=== PATIENT | female | born 1995 | race Caucasian/White ===

== ENCOUNTER 2018-12-25 07:38 | Observation (INO) ==
[2018-12-25 08:54] LABS: Basophils % 0.4 %; Eosinophils % 0.1 %; Hematocrit 41.2 % (35.3-44.9); Hemoglobin 14.3 g/dL (11.5-15.4); Immature Granulocytes % 0.2 % (0-4); Lymphocytes # 1.2 K/mcL (0.6-4.6); Lymphocytes % 14.6 %; Mean Corpuscular HGB Conc 34.7 g/dL (31.6-35.5); Mean Corpuscular Hemoglobin 30.8 pg (28.0-33.3); Mean Corpuscular Volume 88.6 fL (83.0-100.0); Monocytes # 0.6 K/mcL (0.0-1.3); Monocytes % 7.3 %; Neutrophils # 6.5 K/mcL (1.6-8.9); Platelet Count 184 K/mcL (140-400); Red Blood Count 4.65 M/mcL (3.82-4.97); Red Cell Distribution Width 12.4 % (11.5-14.5); Segmented Neutrophils % 77.4 %
[2018-12-25] MEDS ORDERED: *HR* Promethazine 25 MG/ML VIAL IVP ONE (09:03)
--- NOTE | 2018-12-25 09:10 | Emergency Department Note ---
Disposition Clinical Impression: Pyelonephritis, Acute kidney injury Nausea and vomiting Qualifiers: Vomiting type: unspecified Vomiting Intractability: intractable Qualified Code(s): R11.2 - Nausea with vomiting, unspecified Disposition: Admitted As Inpatient Condition: Good Nausea/Vomiting/Diarrhea HPI - General Chief complaint: ED Nausea/Vomiting/Diarrhea Stated complaint: vomiting Time Seen by Provider: 12/25/18 08:26 Source: patient Mode of arrival: private vehicle Limitations: no limitations Nursing Notes Reviewed: Yes Vital Signs Reviewed: Yes - History of Present Illness HPI Narrative: 23-year-old female history of nonalcoholic fatty liver disease, chronic nausea who presents with a complaint of fluid. This is the patient's third visit in 24 hours. Reports 4 days of left flank pain. She was seen previously and told she had a kidney and bladder infection. She was placed on Cipro. Reports that she was also given Pyridium which has actually helped her urine output however she was vomiting today and unable to keep down her home medications. She states she takes Zofran, Phenergan as well as a scopolamine patch as needed. States she had a fever of 102 this morning and tried to take ibuprofen but threw that up. No other complaints. Pt Subjective Complaint: nausea, vomiting, abdominal pain Onset (ago): day(s) (4) Improves with: nothing Worsens with: nonthing Associated symptoms: Reports: nausea/vomiting - Related Data Home Medications Medication Instructions Recorded Confirmed ARIPiprazole 03/05/18 HydrOXYzine Pamoate 03/05/18 Ipratropium/Albuterol Neb 03/05/18 Lamotrigine 03/05/18 Lisinopril-HCTZ 20-12.5 03/05/18 Metoclopramide 03/05/18 RisperiDONE-M 03/05/18 Simvastatin 03/05/18 Transderm-Scop 03/05/18 Vitamin E 03/05/18 Previous Rx's Medication Instructions Recorded Ciprofloxacin [Cipro] 500 mg PO BID #14 tablet 12/24/18 Ondansetron ODT [Zofran ODT] 4 mg SL Q6HR PRN #12 tab.rapdis 12/24/18 Phenazopyridine [Pyridium] 100 mg PO TID #6 tablet 12/25/18 Allergies Allergy/AdvReac Type Severity Reaction Status Date / Time cephalexin [From Keflex] Allergy Hives Verified 12/24/18 01:39 peanut Allergy Swelling Verified 12/24/18 01:39 of Lip/Tongue/Throat duloxetine [From Cymbalta] AdvReac Vomiting Verified 12/24/18 01:39 All systems ED: reviewed and negative except as stated. Constitutional: Reports: fever, chills Gastrointestinal: Reports: abdominal pain, nausea, vomiting. Denies: diarrhea Genitourinary: Reports: frequency. Denies: dysuria, hematuria Past Medical History - Past Medical History Attestation: Yes The following information was validated with the patient. Source: patient Medical history: Reports: asthma, hyperlipidemia, hypertension, liver disease Psychiatric history: Reports: anxiety, bipolar, depression, panic disorder, prior suicide attempt, schizophrenia, previous psychiatric hospitalization PHARMACIST INTERN history: Reports: polycystic ovary syndrome - Social History Smoking Status: Never smoker Smokeless Tobacco Status: No Alcohol use: Reports: none Drug use: Reports: none Physical Exam - General Limitations: no limitations General appearance: alert, in no apparent distress - Head Head exam: atraumatic, normocephalic, normal inspection - Eye Eye exam: Present: normal appearance - ENT ENT exam: normal exam - Neck Neck exam: Present: normal inspection - Chest Chest inspection: Present: normal inspection, symmetric chest wall rise - Respiratory Respiratory exam: Present: normal lung sounds bilaterally - Cardiovascular Cardiovascular exam: Present: regular rate, normal rhythm, normal heart sounds - Abdominal Exam Abdominal exam: Present: soft, tenderness (Moderate L flank and CVA tenderness). Absent: distention, guarding, rigidity - Extremities Exam Extremities exam: Present: normal inspection, full ROM - Expanded Upper Extremity Exam Shoulder exam: Present: normal inspection, full ROM Arm exam: Present: normal inspection, full ROM Elbow exam: Present: normal inspection, full ROM Forearm/Wrist exam: Present: normal inspection, full ROM Hand exam: Present: normal inspection, full ROM - Expanded Lower Extremity Exam Hip/Pelvis exam: Present: normal inspection, full ROM Upper leg exam: Present: normal inspection, full ROM Knee exam: Present: normal inspection, full ROM Lower leg exam: Present: normal inspection, full ROM Ankle exam: Present: normal inspection, full ROM Foot/toe exam: Present: normal inspection, full ROM - Skin Skin exam: Present: warm, dry Course Course Narrative: Patient seen and examined. Vital signs reviewed. She appears in no acute distress. I reviewed her previous visits demonstrating a CT scan with concern for pyelonephritis. The patient is on Cipro as an outpatient currently. She also has antiemetics at home. At this point I discussed with her that symptomatic control would be a #1 priority. We will give her some IV fluids and antiemetics. Labs and urinalysis were ordered prior to my assessment. Pending. - Reevaluation(s) Reevaluation #1: Patient vomiting after IV phenergan. Zofran ordered. Labs reviewed demonstrating an LUIS w/ SCr of 1.45. Stable transaminitis. Cipro given. Patient will likely require admission given concerns for pyelo and inability to tolerate oral intake. Vital Signs Temperature 98.8 F 12/25/18 08:52 Pulse Rate 97 12/25/18 08:52 Respiratory Rate 18 12/25/18 08:52 Blood Pressure 132/88 12/25/18 08:52 O2 Sat by Pulse Oximetry 97 12/25/18 08:52 Temperature 98.8 F 12/25/18 08:52 Pulse Rate 73 12/25/18 09:48 Respiratory Rate 18 12/25/18 09:40 Blood Pressure 144/95 12/25/18 09:48 O2 Sat by Pulse Oximetry 100 12/25/18 09:40 Oxygen Delivery Oxygen Delivery Room Air Nausea/Vomiting/Diarrhea - MDM Narrative Medical decision making narrative: 23-year-old female who presented with left flank pain previously diagnosed with pyelonephritis now with vomiting and unable to tolerate anything oral. She has tried multiple anti-emetics at home as well as IV antibiotics here without improvement. I reviewed her CT imaging demonstrates concern for pyelonephritis as well as cystitis. Her urinalysis is not grossly unremarkable for infection however there is significant blood which I am assuming is obscuring analysis. Her symptoms and exam are consistent with pyelonephritis. Her labs here are grossly unremarkable with the exception of a developing acute kidney injury with an increase in her creatinine from 0.9 to 1.45. Patient was given 2 L of IV fluids, Phenergan and Zofran as well as Cipro. She is admitted to the hospitalist service for pyelonephritis. - Medical Records Medical records reviewed: Yes I reviewed the patient's medical records. - Lab Data Lab results reviewed: Yes I reviewed the patient's lab results. Result diagrams: 12/25/18 08:29 12/25/18 08:29 Lab Results 12/25/18 12/25/18 12/25/18 Range/Units 07:57 08:29 08:29 WBC 8.4 D (4.3-11.1) K/mcL RBC 4.65 (3.82-4.97) M/mcL Hgb 14.3 (11.5-15.4) g/dL Hct 41.2 (35.3-44.9) % MCV 88.6 (83.0-100.0) fL MCH 30.8 (28.0-33.3) pg MCHC 34.7 (31.6-35.5) g/dL RDW 12.4 (11.5-14.5) % Plt Count 184 (140-400) K/mcL MPV 12.0 (9.4-12.4) fL Immature Gran % 0.2 (0-4) % Seg Neutrophils % 77.4 % Lymphocytes % 14.6 % Monocytes % 7.3 % Eosinophils % 0.1 % Basophils % 0.4 % Neutrophils # 6.5 (1.6-8.9) K/mcL Lymphocytes # 1.2 (0.6-4.6) K/mcL Monocytes # 0.6 (0.0-1.3) K/mcL Eosinophils # 0.0 (0.0-0.6) K/mcL Basophils # 0.0 (0.0-0.2) K/mcL Sodium 137 (136-145) mEq/L Potassium 3.9 (3.5-5.1) mEq/L Chloride 104 (98-107) mEq/L Carbon Dioxide 24 (23-29) mEq/L BUN 11 (6-20) mg/dL Creatinine 1.45 H (0.60-1.20) mg/dL Est GFR ( Amer) 53 L (> 60) Est GFR (Non-Af Amer) 44 L (> 60) BUN/Creatinine Ratio 8 (6-26) Glucose 128 H (70-105) mg/dL Calculated Osmolality 285 (280-300) Calcium 9.9 (8.6-10.3) mg/dL Total Bilirubin 1.1 H (0.3-1.0) mg/dL Direct Bilirubin 0.2 (0.0-0.2) mg/dL Indirect Bilirubin 0.9 (0.0-1.2) mg/dL AST 89 H (13-39) Units/L ALT 131 H (7-52) Units/L Alkaline Phosphatase 95 (34-104) Units/L Serum Total Protein 7.8 (6.4-8.9) g/dL Albumin 4.7 (3.5-5.7) g/dL Globulin 3.1 (2.4-3.5) g/dL Albumin/Globulin Ratio 1.5 (1.1-2.2) Lipase 15 (11-82) Units/L Urine Color [place] A (Yellow) Urine Clarity Cloudy A (Clear) Urine pH 5.0 (5.0-8.0) pH Units Ur Specific [place] 1.017 (1.010-1.025) Urine Protein Trace (Neg-Trace) mg/dL Urine Glucose (UA) Normal (Normal) mg/dL Urine Ketones Trace H (Negative) mg/dL Urine Blood Large H (Negative) Urine Nitrite Positive A (Negative) Urine Bilirubin Small H (Negative) Urine Urobilinogen Normal (Normal) mg/dL Ur Leukocyte Esterase Moderate H (Negative) Urine Microscopic RBC 50-100 H (0-3) per hpf Urine Microscopic WBC 15-30 H (0-3) per hpf Ur Squamous Epith Cells Many H (None-Few) per lpf Urine Bacteria None Seen (None-Few) per hpf Hyaline Casts None Seen (None-Few) per lpf Ur Culture Indicated? Cancelled Urine Test (Negative) 12/25/18 Range/Units 08:51 WBC (4.3-11.1) K/mcL RBC (3.82-4.97) M/mcL Hgb (11.5-15.4) g/dL Hct (35.3-44.9) % MCV (83.0-100.0) fL MCH (28.0-33.3) pg MCHC (31.6-35.5) g/dL RDW (11.5-14.5) % Plt Count (140-400) K/mcL MPV (9.4-12.4) fL Immature Gran % (0-4) % Seg Neutrophils % % Lymphocytes % % Monocytes % % Eosinophils % % Basophils % % Neutrophils # (1.6-8.9) K/mcL Lymphocytes # (0.6-4.6) K/mcL Monocytes # (0.0-1.3) K/mcL Eosinophils # (0.0-0.6) K/mcL Basophils # (0.0-0.2) K/mcL Sodium (136-145) mEq/L Potassium (3.5-5.1) mEq/L Chloride (98-107) mEq/L Carbon Dioxide (23-29) mEq/L BUN (6-20) mg/dL Creatinine (0.60-1.20) mg/dL Est GFR ( Amer) (> 60) Est GFR (Non-Af Amer) (> 60) BUN/Creatinine Ratio (6-26) Glucose (70-105) mg/dL Calculated Osmolality (280-300) Calcium (8.6-10.3) mg/dL Total Bilirubin (0.3-1.0) mg/dL Direct Bilirubin (0.0-0.2) mg/dL Indirect Bilirubin (0.0-1.2) mg/dL AST (13-39) Units/L ALT (7-52) Units/L Alkaline Phosphatase (34-104) Units/L Serum Total Protein (6.4-8.9) g/dL Albumin (3.5-5.7) g/dL Globulin (2.4-3.5) g/dL Albumin/Globulin Ratio (1.1-2.2) Lipase (11-82) Units/L Urine Color (Yellow) Urine Clarity (Clear) Urine pH (5.0-8.0) pH Units Ur Specific [place] (1.010-1.025) Urine Protein (Neg-Trace) mg/dL Urine Glucose (UA) (Normal) mg/dL Urine Ketones (Negative) mg/dL Urine Blood (Negative) Urine Nitrite (Negative) Urine Bilirubin (Negative) Urine Urobilinogen (Normal) mg/dL Ur Leukocyte Esterase (Negative) Urine Microscopic RBC (0-3) per hpf Urine Microscopic WBC (0-3) per hpf Ur Squamous Epith Cells (None-Few) per lpf Urine Bacteria (None-Few) per hpf Hyaline Casts (None-Few) per lpf Ur Culture Indicated? Urine Test Negative (Negative) S.B.A.R. - S.B.A.R. Situation: Demographics, MOA Background: Presenting Complaint, Relevant PMH, Meds, & Allergies Assessment: Course and respsone to treatment, Exam Concerns, Patient/Family Expectation, Pertinant Lab Results Recommendation: Barrier(s) to disposition, Recommendation based on pending studies, treatments, or consults [place] Report Given to: Dr. Camron Noguera Repor Time: 11:58 Attestation Statement - Attestation Attestation: I, Lazaro Steiner, examined this patient and my medical decision-making was reviewed with the CUSTOM HOME INSTALLER/PA/Advanced Practice Nurse/Resident Physician. I agree with the documented findings, disposition and treatment plan as described except to the extent set forth below. 23-year-old female presents emergency Department with concerns of persistent, nausea, vomiting. Patient reports she was recently diagnosed with urinary tract infection and started on Cipro. Patient unable to tolerate by mouth intake at home and is unable to keep down her anabiotic sore her nausea medications. Patient was given antiemetics in emergency department and continued to have nausea and vomiting. CT showed possible inflammation surrounding her kidneys suggesting possible pyelonephritis. Patient does have left-sided CVA tenderness on exam. Patient will be admitted to the hospitalist for further care and evaluation of persistent and intractable nausea and vomiting as well as possible pyelonephritis. Patient started on antibiotics and admitted. Patient comfortable with the plan of action.
[2018-12-25 09:15] LABS: Albumin 4.7 g/dL (3.5-5.7); Albumin/Globulin Ratio 1.5 (1.1-2.2); Bilirubin,Direct 0.2 mg/dL (0.0-0.2); Bilirubin,Indirect 0.9 mg/dL (0.0-1.2); Bilirubin,Total 1.1 mg/dL (0.3-1.0); Calcium 9.9 mg/dL (8.6-10.3); Globulin 3.1 g/dL (2.4-3.5); Potassium 3.9 mEq/L (3.5-5.1); Total Protein 7.8 g/dL (6.4-8.9)
[2018-12-25] MEDS: 0.9 % Sodium Chloride 1,000 ML IVC SCH ×4 (10:14→21:14)
[2018-12-25] MEDS ORDERED: Ondansetron 4 MG/2 ML VIAL IVP ONE (10:30)
[2018-12-25 10:31] LABS: Bilirubin,Urine Small (Negative); Blood,Urine Large (Negative); Clarity,Urine Cloudy (Clear); Color,Urine Orange (Yellow); Glucose,Urine (UA) Normal (Normal); Ketones,Urine Trace mg/dL (Negative); Leukocyte Esterase,Urine Moderate (Negative); Nitrite,Urine Positive (Negative); Protein,Urine Trace mg/dL (Neg-Trace); Specific Gravity,Urine 1.017 (1.010-1.025); Urobilinogen,Urine Normal (Normal)
[2018-12-25 10:33] LABS: Bacteria,Urine None Seen per hpf (None-Few); Hyaline Casts,Urine None Seen per lpf (None-Few); RBC,Urine 50-100 per hpf (0-3); Squamous Epithelial Cell,Urine Many per lpf (None-Few); WBC,Urine 15-30 per hpf (0-3)
[2018-12-25] MEDS ORDERED: *HR* FentaNYL (PF) 100 MCG/2 ML VIAL IVP ONE (11:12)
[2018-12-25] MEDS ORDERED: Acetaminophen 325 MG TABLET PO PRN (13:35)
[2018-12-25] MEDS ORDERED: Naloxone 0.4 MG/ML INJ IVP PRN (13:35)
--- NOTE | 2018-12-25 13:47 | Internal Med History&Physical ---
Date of Encounter: 12/25/18 Time of Encounter: 13:44 Internal Medicine - H&P: HPI Chief complaint: Right flank pain, N/V Admitted From: Emergency Dept History of present illness: Marjorie Johnson is a 23 F w hx schizophrenia, bipolar, HTN, HLD, CORBETT, PCOS, obesity, who p/w L flank pain. Pain began a few days ago and has progressed in intensity. Was seen in our ED yesterday and diagnosed with pyelonephritis, sent home with nausea meds and Cipro po. CT at the time showed uncomplicated enhancement of kidneys and bladder suggesting cystitis and pyelonephritis. However, her nausea persisted and she was unable to hold down any of her abx, na usea meds, or ibuprofen. She also spiked a fever this AM. Due to being unable to hold down fluid or pills, she came back to ED. Currently endorsing L flank pain radiating to abdomen, N/V, dysuria, and decreased urination. In the ED, pt tachycardic and uncomfortable appearing, with tenderness of exam. Labs showed Cr 1.4. She was given doses of nausea meds without relief of symptoms, and thus given IV cipro, fluids, and admitted for further management of nausea and pyelonephritis. Past medical, surgical, social, and family histories reviewed and updated as below, with update to family history to include heart disease in mother. Past Med Surg Social Fam HX - Past Medical History Medical history: asthma, hyperlipidemia, hypertension, liver disease Additional medical history: unspecified Psychiatric history: anxiety, bipolar, depression, panic disorder, prior suicide attempt, schizophrenia, previous psychiatric hospitalization - Past Surgical History Additional surgical history: Liver biopsy - Social History Smoking Status: Never smoker Smokeless Tobacco Status: No Alcohol use: none Drug use: none - Family History Mother Hx Family Cardiac Disorders: Yes (HTN) Hx Family Endocrine Disorder: Yes (thyroid, Diabetes m) Internal Medicine - H&P: Meds ARIPiprazole 03/05/18 [History] HydrOXYzine Pamoate 03/05/18 [History] Ipratropium/Albuterol Neb 03/05/18 [History] Lamotrigine 03/05/18 [History] Lisinopril-HCTZ 20-12.5 03/05/18 [History] Metoclopramide 03/05/18 [History] RisperiDONE-M 03/05/18 [History] Simvastatin 03/05/18 [History] Transderm-Scop 03/05/18 [History] Vitamin E 03/05/18 [History] Ciprofloxacin [Cipro] 500 mg PO BID #14 tablet 12/24/18 [Rx] Ondansetron ODT [Zofran ODT] 4 mg SL Q6HR PRN #12 tab.rapdis 12/24/18 [Rx] Phenazopyridine [Pyridium] 100 mg PO TID #6 tablet 12/25/18 [Rx] Allergy/AdvReac Type Severity Reaction Status Date / Time cephalexin [From Keflex] Allergy Hives Verified 12/24/18 01:39 peanut Allergy Swelling Verified 12/24/18 01:39 of Lip/Tongue/Throat duloxetine [From Cymbalta] AdvReac Vomiting Verified 12/24/18 01:39 All Systems PM: A 10-system review of systems was performed and is negative for pertinent findings except as documented above in the HPI. - Constitutional Vitals: Temp Pulse Resp BP Pulse Ox 98.8 F 73 18 144/95 100 12/25/18 08:52 12/25/18 09:48 12/25/18 09:40 12/25/18 09:48 12/25/18 09:40 Exam: General: NAD, good eye contact, uncomfortable appearing but pleasant Head: Atraumatic, normocephalic. Face symmetric Eyes: EOMI, sclerae anicteric ENT: Mucous membranes dry. Normal oral mucosa and dentition. Trachea midline. Thoracic: No visible chest wall deformities. Normal breath sounds b/l, no wheezing or crackles Cardio: Normal S1 and S2, regular rate and rhythm, no murmurs. Abdomen: Soft, nondistended. Bowel sounds present. Does not have abd tenderness but palpation does cause nausea. Does have L CVA tenderness. Extremities: Warm, well perfused. DP pulses 2+ b/l. No edema Skin: Intact. No rashes, bruises, or ulcers Neuro: Awake, fully oriented. Good memory, concentration, attention. Speech fluent. Internal Med - H&P Results - Labs CBC & Chem 7: 12/25/18 08:29 12/25/18 08:29 Labs: Short CBC 12/25/18 Range/Units 08:29 WBC 8.4 D (4.3-11.1) K/mcL Hgb 14.3 (11.5-15.4) g/dL Hct 41.2 (35.3-44.9) % Plt Count 184 (140-400) K/mcL Neutrophils # 6.5 (1.6-8.9) K/mcL BMP 12/25/18 08:29 Sodium 137 Potassium 3.9 Chloride 104 Carbon Dioxide 24 BUN 11 Creatinine 1.45 H Glucose 128 H Calcium 9.9 Liver Function 12/25/18 Range/Units 08:29 Total Bilirubin 1.1 H (0.3-1.0) mg/dL Direct Bilirubin 0.2 (0.0-0.2) mg/dL AST 89 H (13-39) Units/L ALT 131 H (7-52) Units/L Alkaline Phosphatase 95 (34-104) Units/L Albumin 4.7 (3.5-5.7) g/dL Urine 12/25/18 Range/Units 07:57 Urine Color [place] A (Yellow) Urine Clarity Cloudy A (Clear) Urine pH 5.0 (5.0-8.0) pH Units Ur Specific [place] 1.017 (1.010-1.025) Urine Protein Trace (Neg-Trace) mg/dL Urine Glucose (UA) Normal (Normal) mg/dL - Summary of Assessment and Plan Summary of Assessment and Plan: Marjorie Johnson is a 23 F w hx schizophrenia, bipolar, HTN, HLD, CORBETT, PCOS, obesity, who p/w L flank pain, dirty UA, and N/V, concerning for pyelonephritis with inability to tolerate PO therapy. Pyelonephritis and complicated cystitis: UA dirty, L CVA tenderness, CT showing pyelo w/o abscess - UCx pending - empiric cipro 400 iv bid until can PO Refractory N/V: 2/2 pyelo above, causing dehydration - zofran and phenergan - pain control with toradol, norco, tylenol - MIVF NS@150 LUIS: 2/2 dehydration 2/2 N/V above - fluids as above and monitor Obesity: BMI 36 Mental health: continue home meds once verified by pharmacy and pt can PO HTN: holding lisinopril/hctz given dehydration and LUIS HLD/CORBETT: home statin PPx: lovenox FEN: regular, MIVF as above Lines: PIV Consults: Code: Full Dispo: Obs for pyelo and N/V, anticipate 1-2 days, will be homegoing
[2018-12-25] MEDS: *HR* HYDROcodone/Acet 5/325 mg TABLET PO PRN ×2 (14:32→21:15)
[2018-12-25] MEDS: Ondansetron 4 MG/2 ML VIAL IVP PRN ×2 (14:32→21:14)
[2018-12-25] MEDS: Ketorolac 15 MG/ML VIAL IVP PRN (17:46)
[2018-12-25] MEDS: *HR* Promethazine 25 MG/ML VIAL IVP PRN (17:46)
[2018-12-26] MEDS: *HR* Promethazine 25 MG/ML VIAL IVP PRN ×2 (00:30→06:37)
[2018-12-26] MEDS: Ketorolac 15 MG/ML VIAL IVP PRN ×2 (00:30→06:37)
[2018-12-26] MEDS: 0.9 % Sodium Chloride 1,000 ML IVC SCH ×3 (04:18→21:01)
[2018-12-26] MEDS: *HR* HYDROcodone/Acet 5/325 mg TABLET PO PRN ×2 (04:19→18:27)
[2018-12-26] MEDS: Ondansetron 4 MG/2 ML VIAL IVP PRN ×3 (04:20→20:18)
[2018-12-26 07:12] LABS: Hematocrit 36.6 % (35.3-44.9); Mean Corpuscular HGB Conc 32.8 g/dL (31.6-35.5); Mean Corpuscular Hemoglobin 30.2 pg (28.0-33.3); Mean Corpuscular Volume 92.2 fL (83.0-100.0); Mean Platelet Volume 12.1 fL (9.4-12.4); Platelet Count 136 K/mcL (140-400); Red Blood Count 3.97 M/mcL (3.82-4.97); Red Cell Distribution Width 12.4 % (11.5-14.5)
[2018-12-26 07:33] LABS: Calcium 8.9 mg/dL (8.6-10.3); Magnesium 1.8 mg/dL (1.6-2.6); Potassium 3.5 mEq/L (3.5-5.1)
--- NOTE | 2018-12-26 09:51 | Internal Med Progress Note ---
Date of Encounter: 12/26/18 Time of Encounter: 09:49 - Assessment and plan (1) Pyelonephritis Current Visit: Yes Status: Acute Assessment and plan: Still with considerable discomfort, but again continued low outputs, continue IV hydration and IV antibiotics. Anti-emetics as needed. Hopefully within 24-48 hours she can be safely discharged. Discussed the importance of walking 2-3 times a day in the matute, she will not need any further DVT prophylaxis. (2) Acute kidney injury Current Visit: Yes Status: Acute Assessment and plan: Renal function is improving, we will need to stop the Toradol. Continue hydration. (3) Bipolar 1 disorder Current Visit: No Status: Chronic (4) CORBETT (nonalcoholic steatohepatitis) Current Visit: Yes Status: Acute (5) Hypertension Current Visit: Yes Status: Chronic Assessment and plan: Holding blood pressure meds, stable at this time. Qualifiers: Qualified Code(s): I10 - Essential (primary) hypertension - Subjective Interval history: Still with mild to moderate left flank pain, the nausea is improved, and urine output is still somewhat low. She has received a total of at least 3 L of fluid at this time. She has been afebrile. Appears to be in no distress. - Constitutional Vitals: Temp Pulse Resp BP Pulse Ox 98.3 F 61 15 123/85 97 12/26/18 06:35 12/26/18 06:35 12/26/18 06:35 12/26/18 06:35 12/26/18 06:35 General appearance: Present: A&O X 3, pleasant, obese, answers questions appropriately - Respiratory Respiratory exam: Present: CTAB. Absent: respiratory distress, tachypnea - Cardiovascular Cardiovascular exam: Present: RRR, +S1, +S2. Absent: JVD, tachycardia - GI/Abdominal GI/Abdominal exam: Present: normal bowel sounds, soft, no peritoneal signs. Absent: splenomegaly Internal Medicine: Result - Labs CBC & Chem 7: 12/26/18 06:26 12/26/18 06:26 Labs: Short CBC 12/26/18 Range/Units 06:26 WBC 5.5 (4.3-11.1) K/mcL Hgb 12.0 D (11.5-15.4) g/dL Hct 36.6 (35.3-44.9) % Plt Count 136 L (140-400) K/mcL BMP 12/26/18 06:26 Sodium 140 Potassium 3.5 Chloride 109 H Carbon Dioxide 23 BUN 11 Creatinine 1.34 H Glucose 96 Calcium 8.9 Urine 12/25/18 Range/Units 07:57 Urine Color [place] A (Yellow) Urine Clarity Cloudy A (Clear) Urine pH 5.0 (5.0-8.0) pH Units Ur Specific [place] 1.017 (1.010-1.025) Urine Protein Trace (Neg-Trace) mg/dL Urine Glucose (UA) Normal (Normal) mg/dL Consult Discharge Plan - Plan Referrals: Natalia Dillon MD [Primary Care Provider] -
[2018-12-27] MEDS: *HR* HYDROcodone/Acet 5/325 mg TABLET PO PRN (03:43)
[2018-12-27] MEDS: Ondansetron 4 MG/2 ML VIAL IVP PRN ×2 (03:59→12:30)
[2018-12-27] MEDS: 0.9 % Sodium Chloride 1,000 ML IVC SCH (07:32)
--- NOTE | 2018-12-27 11:00 | Discharge Summary ---
<Cole Cano - Last Filed: 12/27/18 14:37> - NOTES TO OUTPATIENT PROVIDER Notes to Outpatient Provider: Mrs. Johnson was admitted and treated for acute kidney injury and likely pyelonephritis secondary to UTI. She was treated with pain control, IV ciprofloxacin, IV fluids. She recovered well clinically and prior to discharge was producing urine and tolerating by mouth intake. She will be discharged with a continued course of oral ciprofloxacin. Date of Encounter: 12/27/18 Time of Encounter: 09:00 - Discharge Diagnosis (1) Pyelonephritis Priority: Primary Status: Acute Assessment and Plan: Patient presented with pyelonephritis and acute kidney injury secondary to UTI She was treated with 3 days of IV ciprofloxacin, when necessary antiemetics, normal saline, pain control She recovered well clinically with improvement in creatinine, urine output, by mouth intake, pain and nausea Stable for discharge with 4 days continued course oral ciprofloxacin for 7 day total course (2) Acute kidney injury Priority: Primary Status: Acute Assessment and Plan: As above (3) Bipolar 1 disorder Priority: Secondary Status: Chronic (4) CORBETT (nonalcoholic steatohepatitis) Priority: Secondary Status: Acute (5) Hypertension Priority: Secondary Status: Chronic Assessment and Plan: Blood pressure meds held while inpatient, blood pressure stable during hospital course, we will resume home meds at discharge Qualifiers: Hypertension type: essential hypertension Qualified Code(s): I10 - Essential (primary) hypertension Hospital course: Ms. Johnson is a 23 year old female with a past medical history of schizophrenia, bipolar disorder, hypertension, hyperlipidemia, nonalcoholic steatic hepatitis, PCOS. She presented to the emergency department for flank pain, nausea, vomiting. She was admitted and treated for pyelonephritis and acute kidney injury secondary to UTI. She was treated with 3 days of intravenous normal saline maintenance fluids, intravenous ciprofloxacin, as needed pain and nausea control. Over the duration of the hospital course her clinical condition improved, prior to discharge she was able to produce appropriate urine output and was tolerating by mouth intake. She will be discharged in stable condition with for continued days by mouth ciprofloxacin for a total of 7 days and Tylenol as needed for pain control. Discharge discussed with: patient - Time Spent with Patient Total time spent providing and/or coordinating discharge services: - Discharge Medications Prescriptions: New RX: Acetaminophen [Tylenol] 650 mg PO Q6HR PRN 4 Days #32 tablet PRN Reason: Mild Pain/Fever Ciprofloxacin [Cipro] 500 mg PO BID 4 Days #8 tablet Continue RX: Pantoprazole Sodium [Protonix] 40 mg PO BID RX: Lisinopril [Zestril] mg PO DAILY RX: lamoTRIgine [Lamictal] mg PO DAILY RX: Cetirizine HCl [Zyrtec] mg PO DAILY RX: Aripiprazole [Abilify] mg PO DAILY Home Medications: RX: Aripiprazole [Abilify] mg PO DAILY 12/26/18 [History] RX: Cetirizine HCl [Zyrtec] mg PO DAILY 12/26/18 [History] RX: Lisinopril [Zestril] mg PO DAILY 12/26/18 [History] RX: Pantoprazole Sodium [Protonix] 40 mg PO BID 12/26/18 [History] RX: lamoTRIgine [Lamictal] mg PO DAILY 12/26/18 [History] Ciprofloxacin [Cipro] 500 mg PO BID 4 Days #8 tablet 12/27/18 [Rx] RX: Acetaminophen [Tylenol] 650 mg PO Q6HR PRN 4 Days #32 tablet 12/27/18 [Rx] Allergies/Adverse Reactions: Allergy/AdvReac Type Severity Reaction Status Date / Time cephalexin [From Keflex] Allergy Hives Verified 12/26/18 16:04 peanut Allergy Swelling Verified 12/26/18 16:04 of Lip/Tongue/Throat duloxetine [From Cymbalta] AdvReac Vomiting Verified 12/26/18 16:04 Date of admission: 12/25/18 12:15 Primary care physician: Natalia Dillon MD Discharging clinician: Cole Cano Anticipated date of discharge: 12/27/18 - Constitutional Vitals: Temp Pulse Resp BP Pulse Ox 98.0 F 80 15 126/76 98 12/27/18 10:33 12/27/18 10:33 12/27/18 10:33 12/27/18 10:33 12/27/18 10:33 General appearance: Present: A&O X 3, pleasant, obese, answers questions appropriately Exam: General: NAD, good eye contact Head: Atraumatic, normocephalic. Face symmetric Eyes: EOMI, sclerae anicteric ENT: Mucous membranes moist. Normal oral mucosa and dentition. Trachea midline. Thoracic: No visible chest wall deformities. Normal breath sounds b/l, no wheezing or crackles Cardio: Normal S1 and S2, regular rate and rhythm, no murmurs. Abdomen: Soft, nondistended. Bowel sounds present. Mild diffuse abdominal and left CVA tenderness Extremities: Warm, well perfused. DP pulses 2+ b/l. No edema Skin: Intact. No rashes, bruises, or ulcers Neuro: Awake, fully oriented. Good memory, concentration, attention. Speech fluent. - Patient Status Disposition: Home, Self-Care Condition: Good Functional capacity at discharge: independent ambulation Overall status at discharge: patient is back to baseline - Discharge Instructions Instructions: Acute Pyelonephritis (DC) Follow Up With: Natalia Dillon MD [Primary Care Provider] - 12/31/18 3:00 pm (Family had appointment made before discharge. Thank you) - Diet and Activity Activity: resume usual activities as tolerated Diet: low fat, low cholesterol <Benjamin Pena - Last Filed: 12/27/18 19:12> Date of Encounter: 12/27/18 - Discharge Diagnosis (1) Bipolar 1 disorder Status: Chronic (2) Pyelonephritis Status: Acute (3) Acute kidney injury Status: Acute (4) CORBETT (nonalcoholic steatohepatitis) Status: Acute (5) Hypertension Status: Chronic Qualifiers: Hypertension type: essential hypertension Qualified Code(s): I10 - Essential (primary) hypertension Hospital course: Ms. Johnson is a 23 year old female - Time Spent with Patient Total time spent providing and/or coordinating discharge services: Date of admission: 12/25/18 12:15 Primary care physician: Natalia Dillon MD - Constitutional Vitals: Temp Pulse Resp BP Pulse Ox 98.1 F 70 16 155/79 99 12/27/18 14:06 12/27/18 14:06 12/27/18 14:06 12/27/18 14:06 12/27/18 14:06 - Attending Attestation I examined this patient and my medical decision-making was reviewed with the Resident Physician. I agree with the documented findings, disposition and treatment plan as described except to the extent set forth below.
[2018-12-27 14:09] VITALS: BP 155/79
== END 2018-12-27 15:05 | disposition home or self-care (01) ==
LOC: EMEROOARM 07:38 → 3ANU 07:38
PROVIDERS: ADMIT Internal Medicine; ATTEND Internal Medicine

== ENCOUNTER 2021-02-22 03:06 | Observation (INO) ==
[2021-02-22] MEDS ORDERED: 0.9 % Sodium Chloride 1,000 ML IVC ONE ×3 (03:47→09:28)
[2021-02-22 04:33] LABS: Basophils % 0.2 %; Hematocrit 37.6 % (35.3-44.9); Hemoglobin 12.5 g/dL (11.5-15.4); Immature Granulocytes % 0.4 % (0-4); Mean Corpuscular HGB Conc 33.2 g/dL (31.6-35.5); Mean Corpuscular Hemoglobin 30.1 pg (28.0-33.3); Mean Corpuscular Volume 90.6 fL (83.0-100.0); Mean Platelet Volume 11.8 fL (9.4-12.4); Monocytes # 0.3 K/mcL (0.0-1.3); Monocytes % 6.2 %; Neutrophils # 4.2 K/mcL (1.6-8.9); Platelet Count 162 K/mcL (140-400); Red Blood Count 4.15 M/mcL (3.82-4.97); Red Cell Distribution Width 12.2 % (11.5-14.5); Segmented Neutrophils % 75.2 %; White Blood Count 5.5 K/mcL (4.3-11.1)
[2021-02-22 04:42] LABS: Bilirubin,Urine Negative (Negative); Blood,Urine Large (Negative); Clarity,Urine Turbid (Clear); Color,Urine Light-Orange (Yellow); Glucose,Urine (UA) Normal (Normal); Ketones,Urine Negative (Negative); Leukocyte Esterase,Urine Small (Negative); Mucus,Urine Few per lpf (None-Few); Nitrite,Urine Negative (Negative); Protein,Urine 50 mg/dL (Neg-Trace); RBC,Urine TNTC per hpf (0-3); Specific Gravity,Urine 1.022 (1.010-1.025); Squamous Epithelial Cell,Urine Few per hpf (None-Few); WBC,Urine 15-30 per hpf (0-3)
[2021-02-22 04:53] LABS: Alanine Aminotransferase 74 Units/L (7-52); Albumin 4.4 g/dL (3.5-5.7); Albumin/Globulin Ratio 1.4 (1.1-2.2); Alkaline Phosphatase 72 Units/L (34-104); Aspartate Amino Transferase 53 Units/L (13-39); BUN/Creatinine Ratio 9 (6-26); Bilirubin,Direct 0.2 mg/dL (0.0-0.2); Bilirubin,Indirect 0.4 mg/dL (0.0-1.0); Bilirubin,Total 0.6 mg/dL (0.3-1.0); Blood Urea Nitrogen 8 mg/dL (6-20); Carbon Dioxide 25 mEq/L (23-29); Chloride 102 mEq/L (98-107); Globulin 3.2 g/dL (2.4-3.5); Glucose 93 mg/dL (70-105); Lipase 20 Units/L (11-82); Osmolality,Calculated 282 (280-300); Potassium 3.3 mEq/L (3.5-5.1); Sodium 137 mEq/L (136-145); Total Protein 7.6 g/dL (6.4-8.9); Troponin I < 0.03 ng/mL (< 0.04); eGFR For African Americans > 60 (> 60); eGFR For Non-African Americans > 60 (> 60)
[2021-02-22] MEDS ORDERED: Isovue-370 500 ML BOTTLE IVP ONE (06:09)
[2021-02-22] MEDS ORDERED: Ondansetron 4 MG/2 ML VIAL IVP ONE (07:59)
[2021-02-22] MEDS ORDERED: *HR* Promethazine 25 MG/ML VIAL IM ONE (09:28)
[2021-02-22] MEDS ORDERED: levoFLOXacin 750 MG/150 ML 750 MG/150 ML BAG IVPB ONE (10:13)
[2021-02-22] MEDS ORDERED: Naloxone 0.4 MG/ML INJ IVP PRN (12:31)
[2021-02-22] MEDS ORDERED: *HR* Dextrose 50 % in Water (Vial) 50 ML VIAL IVP PRN (12:33)
[2021-02-22] MEDS ORDERED: D5% in Water 1,000 ML IVC PRN (12:33)
[2021-02-22] MEDS ORDERED: Dextrose Gel 15 GM/37.5 ML TUBE PO PRN ×2 (12:33)
[2021-02-22] MEDS ORDERED: *HR* Promethazine 25 MG/ML VIAL IM PRN (12:39)
[2021-02-22] MEDS ORDERED: Ringers Solution, Lactated 1,000 ML IVC SCH (12:45)
[2021-02-22] MEDS ORDERED: Benzonatate 100 MG CAPSULE PO PRN (14:06)
[2021-02-22] MEDS ORDERED: Gabapentin 300 MG CAPSULE PO PRN (15:41)
[2021-02-22] MEDS: Insulin LISPRO 300 UNITS/3 ML VIAL SUBQ SCH (16:26)
[2021-02-22] MEDS ORDERED: Loratadine 10 MG TABLET PO PRN (17:10)
[2021-02-22] MEDS: Budesonide/Formoterol 160/4.5 1 PUFF INH IH SCH (20:24)
[2021-02-22] MEDS: Acetaminophen 325 MG TABLET PO PRN (21:04)
[2021-02-22] MEDS: Famotidine 20 MG TABLET PO SCH (21:04)
[2021-02-23] MEDS: *HR* Enoxaparin 40 MG/0.4 ML SYRINGE SQ SCH (05:38)
[2021-02-23] MEDS: Acetaminophen 325 MG TABLET PO PRN ×3 (05:53→21:26)
[2021-02-23 07:09] LABS: Hematocrit 33.2 % (35.3-44.9); Immature Granulocytes % 0.4 % (0-4); Lymphocytes # 1.1 K/mcL (0.6-4.6); Mean Corpuscular HGB Conc 32.8 g/dL (31.6-35.5); Mean Corpuscular Hemoglobin 29.8 pg (28.0-33.3); Mean Corpuscular Volume 90.7 fL (83.0-100.0); Mean Platelet Volume 11.7 fL (9.4-12.4); Monocytes # 0.2 K/mcL (0.0-1.3); Monocytes % 4.9 %; Neutrophils # 3.6 K/mcL (1.6-8.9); Platelet Count 139 K/mcL (140-400); Red Blood Count 3.66 M/mcL (3.82-4.97); Red Cell Distribution Width 12.3 % (11.5-14.5); Segmented Neutrophils % 72.7 %; White Blood Count 4.9 K/mcL (4.3-11.1)
[2021-02-23 07:10] LABS: Hemoglobin 10.9 g/dL (11.5-15.4)
[2021-02-23 07:13] LABS: BUN/Creatinine Ratio 8 (6-26); Blood Urea Nitrogen 6 mg/dL (6-20); Calcium 8.3 mg/dL (8.6-10.3); Carbon Dioxide 22 mEq/L (23-29); Chloride 104 mEq/L (98-107); Glucose 91 mg/dL (70-105); Osmolality,Calculated 279 (280-300); Potassium 3.2 mEq/L (3.5-5.1); Sodium 136 mEq/L (136-145); eGFR For African Americans > 60 (> 60); eGFR For Non-African Americans > 60 (> 60)
[2021-02-23] MEDS: Ipratropium 1 PUFF INHALER IH SCH ×3 (07:57→23:01)
[2021-02-23] MEDS: Budesonide/Formoterol 160/4.5 1 PUFF INH IH SCH ×2 (07:57→23:01)
[2021-02-23] MEDS: lamoTRIgine 100 MG TABLET PO SCH (08:56)
[2021-02-23] MEDS: ARIPiprazole 10 MG TABLET PO SCH (08:57)
[2021-02-23] MEDS: Insulin LISPRO 300 UNITS/3 ML VIAL SUBQ SCH ×3 (08:57→17:02)
[2021-02-23] MEDS ORDERED: lisinopriL 10 MG TABLET PO SCH (09:00)
[2021-02-23] MEDS ORDERED: Tiotropium 10 INH DOSE IH SCH (10:00)
[2021-02-23] MEDS: Ondansetron 4 MG/2 ML VIAL IVP PRN (12:28)
[2021-02-23 13:15] LABS: Adenovirus F 40/41 PCR Not detected (Not detect); Astrovirus PCR Not detected (Not detect); C.difficile Toxin A/B Gene PCR Not detected (Not detect); Campylobacter by PCR Not detected (Not detect); Cryptosporidium by PCR Not detected (Not detect); Cyclospora cayetanensis PCR Not detected (Not detect); E. coli O157 by PCR Not detected (Not detect); Entamoeba histolytica PCR Not detected (Not detect); Enteroaggregative E.coli(EAEC) Not detected (Not detect); Enteropathogenic E.coli(EPEC) Not detected (Not detect); Enterotoxigenic E.coli (ETEC) Not detected (Not detect); Giardia lamblia PCR Not detected (Not detect); Norovirus GI/GII PCR Not detected (Not detect); Plesiomonas shigelloides PCR Not detected (Not detect); Rotavirus A PCR Not detected (Not detect); Salmonella PCR Not detected (Not detect); Sapovirus PCR Not detected (Not detect); Shig/EnteroinvasiveE coli EIEC Not detected (Not detect); Shigalike tox-prod E coli STEC Not detected (Not detect); Vibrio PCR Not detected (Not detect); Vibrio cholerae PCR Not detected (Not detect); Yersinia enterocolitica PCR Not detected (Not detect)
[2021-02-23] MEDS ORDERED: GuaiFENesin Liq 200 MG/10 ML UDC GTUBE PRN (14:53)
[2021-02-23] MEDS: Levalbuterol 1 PUFF INHALER IH SCH ×2 (15:48→23:02)
[2021-02-23] MEDS: Famotidine 20 MG TABLET PO SCH (21:26)
[2021-02-24] MEDS: Levalbuterol 1 PUFF INHALER IH SCH (04:10)
[2021-02-24] MEDS: Ipratropium 1 PUFF INHALER IH SCH (04:10)
[2021-02-24] MEDS: Ondansetron 4 MG/2 ML VIAL IVP PRN (04:20)
[2021-02-24] MEDS: *HR* Enoxaparin 40 MG/0.4 ML SYRINGE SQ SCH (06:29)
[2021-02-24 07:27] LABS: Hematocrit 35.9 % (35.3-44.9); Hemoglobin 11.9 g/dL (11.5-15.4); Mean Corpuscular HGB Conc 33.1 g/dL (31.6-35.5); Mean Corpuscular Hemoglobin 30.1 pg (28.0-33.3); Mean Corpuscular Volume 90.9 fL (83.0-100.0); Mean Platelet Volume 12.2 fL (9.4-12.4); Platelet Count 162 K/mcL (140-400); Red Blood Count 3.95 M/mcL (3.82-4.97); Red Cell Distribution Width 12.3 % (11.5-14.5)
[2021-02-24 07:35] LABS: White Blood Count 7.6 K/mcL (4.3-11.1)
[2021-02-24 07:47] LABS: BUN/Creatinine Ratio 9 (6-26); Blood Urea Nitrogen 7 mg/dL (6-20); Calcium 9.1 mg/dL (8.6-10.3); Carbon Dioxide 21 mEq/L (23-29); Chloride 104 mEq/L (98-107); Glucose 111 mg/dL (70-105); Osmolality,Calculated 283 (280-300); Potassium 3.6 mEq/L (3.5-5.1); Sodium 137 mEq/L (136-145); eGFR For African Americans > 60 (> 60); eGFR For Non-African Americans > 60 (> 60)
[2021-02-24 07:52] VITALS: BP 132/79
[2021-02-24] MEDS: Acetaminophen 325 MG TABLET PO PRN (09:12)
[2021-02-24] MEDS: ARIPiprazole 10 MG TABLET PO SCH (09:12)
[2021-02-24] MEDS: lamoTRIgine 100 MG TABLET PO SCH (09:12)
[2021-02-24] MEDS: Insulin LISPRO 300 UNITS/3 ML VIAL SUBQ SCH (09:12)
== END 2021-02-24 10:50 | disposition home or self-care (01) ==
LOC: 2ANU 03:06 → EMEROOARM 03:06 → SUATTDRO 12:34 → 2ANU 13:28
PROVIDERS: ADMIT Internal Medicine; ATTEND Internal Medicine